=== PATIENT | female | born 1980 | race Caucasian/White ===

== ENCOUNTER → 2017-05-15 08:46 | Outpatient (CLI) | payer MEDICAID ==
[2015-11-10 12:22] VITALS: BMI 29.6
[~2017-05-15 08:46] MED LIST: ALDACTONE25 MG PO; CLEOCIN HCL150 MG PO; MOBIC7.5 MG PO; NORCO 7.5/325 T1 TA1 PO; VALIUM5 MG PO; ZANAFLEX4 MG PO
--- NOTE | 2017-05-20 06:53 | EMG ---
PATIENT:GERSON NGUYEN DATE OF SERVICE: 05/15/17 MEDICAL RECORD: [id number] DATE OF : [birth year] LOCATION: [facility] ADMISSION DATE: REFERRING PHYSICIAN: MASSIMO CASTILLO MD INTERPRETING PHYSICIAN: CLARK PADILLA MD DATE OF SERVICE: 05/15/2017 REFERRED BY: Dr. Castillo as an outpatient. DATE OF : 1980. DATE OF EXAMINATION: 05/15/2017. ELECTROMYOGRAPHIC DATA: Electromyographic examination is limited to the left upper extremity. In the left upper extremity, left median motor stimulation elicits a compound motor action potential with a distal latency of 3.3 milliseconds, peak amplitude of 11 millivolts, and calculated conduction velocity of 45 meters per second. Left ulnar motor stimulation elicits a compound motor action potential with a distal latency of 2.5 milliseconds, peak amplitude of 8 millivolts, and calculated conduction velocity of 64 meters per second. Left ulnar motor stimulation across the elbow fails to elicit evidence of conduction block at this level. Antidromic left median sensory stimulation elicits a response with a distal latency of 4.3 milliseconds, amplitude of 11 microvolts, and calculated conduction velocity of 60 meters per second. Antidromic left ulnar sensory stimulation elicits a response with a distal latency of 2.9 milliseconds, amplitude of 25 microvolts, and calculated conduction velocity of 65 meters per second. The left median F wave has a latency of 29 milliseconds. Needle electrode examination is not performed at this time at the request of the referring physician. 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 The nerve conduction studies are otherwise within normal limits. 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
== END | disposition home or self-care (01) ==
LOC: D.CN 08:30
DX: G56.02 Carpal tunnel syndrome, left upper limb (principal)